=== PATIENT | female | born 1955 | race Caucasian/White ===

== ENCOUNTER 2020-01-17 06:57 | Day surgery (SDC) | payer OTHER ==
--- NOTE | 2020-01-11 14:58 | HP ---
DATE OF SURGERY: 01/17/2020 HISTORY OF PRESENT ILLNESS: The patient is a 64 year-old female who presented to the office with need for follow up colonoscopy. The last colonoscopy was in 2011 after colon resection. Exam was negative. The patient complains of recent pain in lower abdomen, bilateral crampy pain. She denies GI bleeding. She does complain of occasional constipation and diarrhea. PAST MEDICAL HISTORY: Psoriasis. Hypertension. Restless leg. Diverticulosis. PAST SURGICAL HISTORY: She had colon resection for diverticulosis. She had umbilical hernia repair and tubal ligation. ALLERGIES: NEGATIVE. SOCIAL HISTORY: Negative. REVIEW OF SYSTEMS: CONSTITUTIONAL: Denies fever or chills. CHEST: Denies shortness of breath or cough. CVS: Denies chest pain. ABDOMEN: Denies rectal bleeding. Reports some lower abdominal pain, diarrhea and constipation. : Denies dysuria or hematuria. EXTREMITIES: Denies swelling. PHYSICAL EXAMINATION: GENERAL: No acute distress. HEENT: No jaundice. Oral mucosa moist. NECK: No JVD. CHEST: Nonlabored. No shortness of breath. ABDOMEN: Soft, nondistended, nontender to palpation. EXTREMITIES: No edema. INTEGUMENTARY: Warm, pink. No rash. NEUROLOGIC: Alert, awake, oriented. PSYCHIATRIC: Appropriate mood and affect. ASSESSMENT: The patient is complaining of lower abdominal pain. She had a recent rectosigmoid colon adenocarcinoma in 2010. PLAN: Screening colonoscopy to follow up on history of polyp and colon resection with Dr. Norman Nix. As dictated by Caitlyn Biswas NP.
[2020-01-17] MEDS ORDERED: Lactated Ringers 1,000 ML IV ONE (07:22)
[2020-01-17] MEDS ORDERED: Lactated Ringers 1,000 ML IV SCH (07:30)
[2020-01-17] MEDS ORDERED: DIPRIVAN 200 MG/20 ML IV ONE ×2 (08:56→09:08)
[2020-01-17] MEDS ORDERED: Zofran 4 MG/2 ML VIAL ONE (09:30)
[2020-01-17 10:07] VITALS: BP 153/91; PULSE 66; O2SAT 97
--- NOTE | 2020-01-17 11:38 | OP ---
SURGERY DATE/TIME: 01/17/2020 0858 PREOPERATIVE DIAGNOSIS: Abdominal pain, follow up polyps. POSTOPERATIVE DIAGNOSIS: Abdominal pain, follow up polyps. PROCEDURE: Colonoscopy complete to cecum. SURGEON: Norman Nix M.D. ANESTHESIA: MAC. COMPLICATIONS: None. CONDITION: Stable. INDICATION: The patient had some lower abdominal pain and mid abdominal pain and also has a history of polyps and present for colonoscopic examination. She has not had a recent colonoscopic examination. DESCRIPTION OF PROCEDURE: Taken to endoscopy. Left lateral decubitus position. MAC sedation provided. Excellent anesthesia level present. The anastomosis was low anterior end-to-side. The blind end was normal. The functional end was normal. Anastomosis was normal. All the rectal side was normal. The blind end was cannulated and vacuumed out. The functional end was cannulated and advanced. Fairly redundant colon almost a normal length colon as it had been pretty redundant originally prior to sigmoid resection. Base of cecum a little bit of liquid stool that was suctioned, irrigated and totally cleaned out. At this time the appendiceal orifice was normal. Ileocecal valve normal. Base of the cecum normal. Ascending, hepatic, transverse, splenic, descending. No residual sigmoid. Rectum, anus normal. IMPRESSION: Normal examination today. We will stretch her out to five years.
== END 2020-01-17 10:20 | disposition home or self-care (01) ==
LOC: SDC 06:57
PROVIDERS: ATTEND Surgery
DX: Z12.11 Encounter for screening for malignant neoplasm of colon (principal); R10.30 Lower abdominal pain, unspecified; Z86.010 Personal history of colon polyps; Z90.49 Acquired absence of other specified parts of digestive tract; I10 Essential (primary) hypertension; Z79.899 Other long term (current) drug therapy
CPT/HCPCS: J2405; J2704

== ENCOUNTER 2023-04-14 08:34 | Day surgery (SDC) | payer OTHER ==
--- NOTE | 2023-04-08 17:26 | HP ---
DATE: 04/14/2023 HISTORY OF PRESENT ILLNESS: Patient is a 68 year-old female who presents with complaints of anemia. This appears to be new for her. She did have a colonoscopy about 3 years ago. She is due for examination and work-up for her anemia. PAST MEDICAL HISTORY: Hyperlipidemia, hypertension, asthma, gastroesophageal reflux disease, restless leg, osteoporosis, she has had psoriasis. CURRENT MEDICATIONS: Albuterol, aspirin, atorvastatin, folic acid, lisinopril, loratadine, methotrexate, omeprazole, Otezla, Ropinirole, Rybelsus, triamterene. ALLERGIES: NEGATIVE. PAST SURGERIES: Bilateral tubal ligation, hernia repair, colon resection. SOCIAL HISTORY: Negative. FAMILY HISTORY: Colon cancer, hypertension, heart disease, kidney disease. REVIEW OF SYSTEMS: CONSTITUTIONAL: Denies fever or chills. CHEST: Denies shortness of breath. CVS: Denies chest pain. ABDOMEN: Denies abdominal pain. PHYSICAL EXAMINATION: GENERAL: No acute distress. CHEST: Nonlabored. No shortness of breath. CVS: Regular rate and rhythm. ABDOMEN: Soft. IMPRESSION: 1. ANEMIA. PLAN: EGD and colonoscopy with Dr. Mark. Nix. This report was dictated for Dr. Nix by Caitlyn Biswas NP.
[~2023-04-14 08:34] MED LIST: Lactated Ringers 1,000 ML IV SCH
[2023-04-14 09:02] VITALS: RESP 18; O2SAT 97
[2023-04-14] MEDS ORDERED: Versed 2 MG/2 ML Injection ONE (10:40)
[2023-04-14] MEDS ORDERED: Xylocaine-Mpf 2% 5 Ml Vial ONE (10:40)
[2023-04-14] MEDS ORDERED: DIPRIVAN 200 MG/20 ML IV ONE (10:40)
[2023-04-14] MEDS ORDERED: GlucaGen 1 MG ONE (10:56)
--- NOTE | 2023-04-14 11:39 | OP ---
SURGERY DATE/TIME: 04/14/2023 1041 PREOPERATIVE DIAGNOSIS: Follow up for colon cancer, anemia. She has had some intermittent rectal bleeding. POSTOPERATIVE DIAGNOSES: 1) Distal sigmoid 6 mm polyp. 2) A 1 inch hiatal hernia. 3) Grade 2 gastroesophageal reflux disease. PROCEDURES: 1) EGD. Grade 2 gastroesophageal reflux disease, 1 inch hiatal hernia. 2) Colonoscopy complete to cecum. 3) Hot polypectomy 6 mm distal sigmoid polyp. Anastomosis was normal. SURGEON: Norman Nix M.D. ANESTHESIA: General. COMPLICATIONS: None. CONDITION: Stable. INDICATION: The patient had previous colon cancer. She presents for three year follow up. She has had some bright red blood per rectum. DESCRIPTION OF PROCEDURE: She is taken to endoscopy. Left lateral decubitus position. Anal digital examination satisfactory. Scope satisfactory. Rectum satisfactory. Anastomosis normal. Scope advanced to the cecum. Base of the cecum, ileocecal valve, appendiceal orifice normal. Circumferential withdrawal ascending, hepatic, transverse, splenic, descending, sigmoid. Distal sigmoid 6 mm polyp taken with hot biopsy forceps to extinction. Rectum, anus satisfactory. Three year follow up. Prep score was excellent. Withdrawal time about 6 minutes. Upper examination scope introduced. Pharyngoesophageal junction normal. Esophagus normal down to gastroesophageal junction. A 1 inch hiatal hernia, grade 2 gastroesophageal reflux disease. Fundus, body and antrum normal. Pylorus normal. Duodenal bulb normal. Second portion normal. Scope withdrawn and looped upon itself 1 inch hiatal hernia. Scope withdrawn. The patient tolerated the procedure satisfactorily. Follow up in three years.
[2023-04-14 11:51] VITALS: TEMP 97
[2023-04-14 12:10] VITALS: BP 163/84; PULSE 77
== END 2023-04-14 12:12 | disposition home or self-care (01) ==
LOC: SDC 08:34
PROVIDERS: ATTEND Surgery
DX: Z08 Encounter for follow-up examination after completed treatment for malignant neoplasm (principal); Z85.038 Personal history of other malignant neoplasm of large intestine; D64.9 Anemia, unspecified; K62.5 Hemorrhage of anus and rectum; K63.5 Polyp of colon; K44.9 Diaphragmatic hernia without obstruction or gangrene; K21.9 Gastro-esophageal reflux disease without esophagitis
CPT/HCPCS: J1610; J2250; J2704

== ENCOUNTER 2024-07-20 23:55 | Emergency (ER) | payer OTHER ==
[2024-07-21 00:18] VITALS: TEMP 97.8
--- NOTE | 2024-07-21 00:21 | ERPHSYRPT ---
- History of Present Illness Time Seen by Provider: 07/21/24 00:20 Source: patient Exam Limitations: no limitations Patient Subjective Stated Complaint: pt states she has been sick with cough for approx 1 week. was nasueated tonight and was getting a zofran and fell out of bed. denies injury from fall. frequent hacking cough noted. Triage Nursing Assessment: pt alert and oriented, answers quesitons approp. pt ambulates to bed with standby assist. skin warm and dry. respirations nonlabored. frequent hacking cough ntoed. lung sounds diminished Physician History: The patient is a female who presents with worsening cough and shortness of breath. She has been experiencing a worsening cough for about a week, with symptoms intensifying over the last few days. The cough is productive, yielding yellow sputum. She has not checked her temperature but felt febrile a couple of days ago. No chest pain is reported. She experiences shortness of breath and chest tightness, which have been present alongside the cough, contributing to her discomfort. She mentions taking a nighttime sleeping pill, which may affect her ability to provide a consistent history. She denies taking any breathing treatments. She is unsure about any allergies to antibiotics. Timing/Duration: day(s) (3) Cough Quality/Degree: moderate, productive cough Possible Cause: no prior episodes Modifying Factors: Improves With: nothing. Worsens With: activity, coughing, exertion Associated Symptoms: chills, cough, nasal congestion, nasal drainage, shortness of breath, No fever, No chest pain/soreness, No dizziness, No earache, No wheezing Allergies/Adverse Reactions: No Known Drug Allergies Allergy (Verified 03/17/23 08:59) Home Medications: Methotrexate Sodium [Methotrexate] 15 mg PO WEEKLY 03/08/12 [History] lisinopriL [Lisinopril] 20 mg PO BID 02/07/16 [History] Aspirin 81 mg PO DAILY 01/09/20 [History] Ropinirole HCl 0.5 mg [Requip 0.5 MG] 0.5 mg PO HS 01/09/20 [History] Albuterol Sulfate [Proair Digihaler] 2 puff IH Q6HPRN PRN 03/17/23 [History] Apremilast [Otezla] 1 tab PO UD 03/17/23 [History] Atorvastatin Calcium [Lipitor 20MG Tablet] 20 mg PO DAILY 03/17/23 [History] Folic Acid 1 mg [Folate 1 mg] 1 tab PO DAILY 03/17/23 [History] Guaifenesin [Mucinex] 1 tab PO UD PRN 03/17/23 [History] Krill/Om-3/Dha/Epa/Phospho/Ast [Krill Oil 1,000 mg Softgel] 1 cap PO UD 03/17/23 [History] Loratadine 10 mg [Claritin 10 mg] 10 mg PO DAILY 03/17/23 [History] Omeprazole 40 mg PO DAILY 03/17/23 [History] Semaglutide [Rybelsus] 1 tab PO UD 03/17/23 [History] Triamterene/Hydrochlorothiazid [Triamterene-Hctz 37.5-25 mg Tb] 1 tab PO UD 0 03/17/23 [History] Ubidecarenone/Vit E Acet [Co Q-10 100 mg Softgel] 1 tab PO DAILY 03/17/23 [History] Hx Tetanus, Diphtheria Vaccination/Date Given: Yes Hx Influenza Vaccination/Date Given: Yes Hx Pneumococcal Vaccination/Date Given: Yes Immunizations Up to Date: Yes Travel Risk - International Travel Have you traveled outside of the country in past 3 weeks: No - Emerging Infectious Disease Are you exhibiting symptoms associated with any current EIDs: Yes Symptoms: Cough: New Onset, Headaches/Body Aches/ - Review of Systems All Other Systems: Reviewed and Negative - Past Medical History Pertinent Past Medical History: Yes Neurological History: TIA ENT History: No Pertinent History Cardiac History: Hypertension Respiratory History: Other Endocrine Medical History: No Pertinent History Musculoskeletal History: Osteoarthritis, Other GI Medical History: Colorectal Cancer History: No Pertinent History Psycho-Social History: No Pertinent History Female Reproductive Disorders: No Pertinent History Other Medical History: skin cancer to chest. psoriatic arthritis. Pulmonary HTN. Hepatitis remission - Past Surgical History Past Surgical History: Yes Neuro Surgical History: No Pertinent History Cardiac: No Pertinent History Respiratory: No Pertinent History Gastrointestinal: Colon Resection, Hernia Repair Genitourinary: No Pertinent History Musculoskeletal: No Pertinent History Female Surgical History: Tubal Ligation Other Surgical History: skin cancer removed from chest - Social History Smoking Status: Never smoker Exposure to second hand smoke: No Drug Use: none Patient Lives Alone: No - Social Determinants of Health Will the patient participate in the screening: Declined to provide - Nursing Vital Signs Nursing Vital Signs: Initial Vital Signs Blood Pressure 155/81 07/21/24 00:01 Pain Scale Pain Intensity 3 - Physical Exam General Appearance: no apparent distress Ears, Nose, Throat Exam: normal ENT inspection Neck Exam: normal inspection, supple, full range of motion Respiratory Exam: airway intact, rhonchi, No respiratory distress Cardiovascular Exam: regular rate/rhythm, normal heart sounds, capillary refill <2 sec, No edema Extremity Exam: normal inspection, No pedal edema, No tenderness Neurologic Exam: alert, oriented x 3, cooperative Skin Exam: normal color, warm, dry, No rash SpO2 Interpretation: borderline oxygenation SpO2: 91 O2 Delivery: Room Air - Course Nursing assessment & vital signs reviewed: Yes - Radiology Exams Chest X-ray Interpretation: Interpreted by me, Pneumonia Ordered Tests: Active Orders 24 hr Category Date Time Status CHEST 1 VIEW (PORTABLE) Stat Exams 07/21/24 00:21 Taken CBC W DIFF Stat Lab 07/21/24 00:35 Completed CMP Stat Lab 07/21/24 00:35 Completed PROCALCITONIN Stat Lab 07/21/24 00:35 Completed Respiratory Therapy Assessment DAILY RT 07/21/24 00:44 Completed Medication Summary Discontinued Medications Generic Name Dose Route Start Last Admin Trade Name Freq PRN Reason Stop Dose Admin Albuterol/Ipratropium 3 ml 07/21/24 00:20 07/21/24 00:41 Ipratropium/Albuterol Sulfate 3 Ml Ampul.Neb IH 07/21/24 00:21 3 ml STAT ONE Administration Albuterol/Ipratropium Confirm 07/21/24 00:36 Ipratropium/Albuterol Sulfate 3 Ml Ampul.Neb Administered 07/21/24 00:37 Dose 3 ml IH .STK-MED ONE Methylprednisolone Sodium 0 mg 07/21/24 00:20 07/21/24 01:12 Succinate 125 mg/ Sterile IV 07/21/24 00:21 125 mg Water 2 ml STAT ONE Administration Guaifenesin/Dextromethorphan 10 ml 07/21/24 00:20 07/21/24 01:29 Guaifenesin/D-Methorphan Hb 118 Ml Syrup PO 07/21/24 00:21 10 ml STAT ONE Administration Sodium Chloride 1,000 mls @ 999 mls/hr 07/21/24 00:20 07/21/24 03:07 Sodium Chloride 0.9% 1000 Ml IV 07/21/24 01:20 Infused .Q1H1M STA Infusion Ceftriaxone Sodium 2 gm in 100 mls @ 200 mls/hr 07/21/24 00:20 07/21/24 03:05 Rocephin 2 Gm/100 Ml Nacl IV 07/21/24 00:49 Infused STAT ONE Infusion Azithromycin 500 mg in 250 mls @ 250 mls/hr 07/21/24 00:20 07/21/24 03:08 Zithromax 500 Mg/ 250 Ml Nacl Premix IV 07/21/24 01:19 Infused STAT STA Infusion Sodium Chloride Confirm 07/21/24 01:05 Sodium Chloride 0.9% 1000 Ml Administered 07/21/24 01:06 Dose 1,000 mls @ ud .ROUTE .STK-MED ONE Ceftriaxone Sodium Confirm 07/21/24 01:06 Rocephin 2 Gm/100 Ml Nacl Administered 07/21/24 01:07 Dose 2 gm in 100 mls @ ud IV .STK-MED ONE Azithromycin Confirm 07/21/24 01:46 Zithromax 500 Mg/ 250 Ml Nacl Premix Administered 07/21/24 01:47 Dose 500 mg in 250 mls @ ud IV .STK-MED ONE Methylprednisolone Sodium Succinate Confirm 07/21/24 01:05 Methylprednis Sod Succ 125 Mg/2 Ml Vial Administered 07/21/24 01:06 Dose 125 mg .ROUTE .STK-MED ONE Ondansetron HCl 8 mg 07/21/24 02:22 07/21/24 02:51 Zofran 4 Mg/Udtablet Orally Disintegrating PO 07/21/24 02:23 8 mg STAT ONE Administration Ondansetron HCl Confirm 07/21/24 02:26 Zofran 4 Mg/Udtablet Orally Disintegrating Administered 07/21/24 02:27 Dose 8 mg .ROUTE .STK-MED ONE Ondansetron HCl Confirm 07/21/24 02:36 Zofran 4 Mg/Udtablet Orally Disintegrating Administered 07/21/24 02:37 Dose 8 mg .ROUTE .STK-MED ONE Sterile Water Confirm 07/21/24 01:05 Water For Injection,Sterile 10 Ml Vial Administered 07/21/24 01:06 Dose 10 ml IJ .STK-MED ONE Lab/Rad Data: Laboratory Result Diagrams 07/21/24 00:35 07/21/24 00:35 Laboratory Results 07/21/24 07/21/24 07/21/24 Range/Units 00:35 00:35 00:35 WBC (3.98-10.04) x10^3/uL RBC (3.93-5.22) x10^6/uL Hgb (11.2-15.7) g/dL Hct (34.1-44.9) % MCV (79.4-94.8) fL MCH (25.6-32.2) pg MCHC (32.2-35.5) g/dL RDW (11.7-14.4) % Plt Count (182-369) x10^3/uL MPV (9.4-12.3) fL Gran % (34.0-71.1) % Immature Gran % (Auto) (0.001-0.429) % Nucleat RBC Rel Count (0.00-0.2) % Eos # (Auto) (0.04-0.36) x10^3/uL Immature Gran # (Auto) (0.001-0.031) x10^3u/L Absolute Lymphs (auto) (1.18-3.74) x10^3/uL Absolute Monos (auto) (0.24-0.86) x10^3/uL Absolute Nucleated RBC (0.00-0.012) x10^3u/L Lymphocytes % (19.3-51.7) % Monocytes % (4.7-12.5) % Eosinophils % (0.7-5.8) % Basophils % (0.1-1.2) % Absolute Granulocytes (1.56-6.13) x10^3/uL Basophils # (0.01-0.08) x10^3/uL Sodium 135 (135-145) mmol/L Potassium 3.5 (3.5-5.1) mmol/L Chloride 102 (98-107) mmol/L Carbon Dioxide 25 (22-30) mmol/L Anion Gap 11.9 (5-15) MEQ/L BUN 14 (7-17) mg/dL Creatinine 0.81 (0.52-1.04) mg/dL Estimated GFR 79.0 ML/MIN Glucose 129 H (74-106) mg/dL Calcium 8.8 (8.4-10.2) mg/dL Total Bilirubin 0.50 (0.2-1.3) mg/dL AST 35 (14-36) U/L ALT 34 (0-35) U/L Alkaline Phosphatase 71 (38-126) U/L Serum Total Protein 7.3 (6.3-8.2) g/dL Albumin 4.3 (3.5-5.0) g/dL Procalcitonin 0.062 (0.030-0.080) ng/mL Influenza Type A Ag NEGATIVE (NEGATIVE) Influenza Type B Ag NEGATIVE (NEGATIVE) RSV (PCR) NEGATIVE (NEGATIVE) SARS-CoV-2 (PCR) NEGATIVE (NEGATIVE) 07/21/24 Range/Units 00:35 WBC 6.4 (3.98-10.04) x10^3/uL RBC 3.80 L (3.93-5.22) x10^6/uL Hgb 11.9 (11.2-15.7) g/dL Hct 36.1 (34.1-44.9) % MCV 95.0 H (79.4-94.8) fL MCH 31.3 (25.6-32.2) pg MCHC 33.0 (32.2-35.5) g/dL RDW 14.1 (11.7-14.4) % Plt Count 211 (182-369) x10^3/uL MPV 9.8 (9.4-12.3) fL Gran % 70.6 (34.0-71.1) % Immature Gran % (Auto) 0.3 (0.001-0.429) % Nucleat RBC Rel Count 0.0 (0.00-0.2) % Eos # (Auto) 0.17 (0.04-0.36) x10^3/uL Immature Gran # (Auto) 0.02 (0.001-0.031) x10^3u/L Absolute Lymphs (auto) 1.10 L (1.18-3.74) x10^3/uL Absolute Monos (auto) 0.57 (0.24-0.86) x10^3/uL Absolute Nucleated RBC 0.00 (0.00-0.012) x10^3u/L Lymphocytes % 17.2 L (19.3-51.7) % Monocytes % 8.9 (4.7-12.5) % Eosinophils % 2.7 (0.7-5.8) % Basophils % 0.3 (0.1-1.2) % Absolute Granulocytes 4.50 (1.56-6.13) x10^3/uL Basophils # 0.02 (0.01-0.08) x10^3/uL Sodium (135-145) mmol/L Potassium (3.5-5.1) mmol/L Chloride (98-107) mmol/L Carbon Dioxide (22-30) mmol/L Anion Gap (5-15) MEQ/L BUN (7-17) mg/dL Creatinine (0.52-1.04) mg/dL Estimated GFR ML/MIN Glucose (74-106) mg/dL Calcium (8.4-10.2) mg/dL Total Bilirubin (0.2-1.3) mg/dL AST (14-36) U/L ALT (0-35) U/L Alkaline Phosphatase (38-126) U/L Serum Total Protein (6.3-8.2) g/dL Albumin (3.5-5.0) g/dL Procalcitonin (0.030-0.080) ng/mL Influenza Type A Ag (NEGATIVE) Influenza Type B Ag (NEGATIVE) RSV (PCR) (NEGATIVE) SARS-CoV-2 (PCR) (NEGATIVE) - Progress Progress: improved Air Movement: good Progress Note: Productive cough, SOB Presents with a one-week history of productive cough with yellow sputum, worsening shortness of breath, and chest tightness. No fever currently, but felt febrile a few days ago. Physical examination revealed wheezing, particularly on the right side. Clinical presentation suggests pneumonia. Discussed need for chest x-ray and WBC count to confirm diagnosis. Informed about antibiotic therapy, potential side effects, and importance of completing the course. No known antibiotic allergies; previous issue with steroids, so will avoid unless necessary. - Order chest x-ray - Check WBC count - Initiate antibiotic therapy with Rocephin and Azithromycin. - SoluMedrol 125mg IV given - Robatussin given for cough CXR shows b/l patchy infiltrates, WBC and procal wnl, COVID, FLU, RSV negative. Will DC home with 4 days of Azithro 250mg and Prednisone 50mg. Tessalon pearls as needed for cough. Follow up PCP in 3-5 days. Blood Culture(s) Obtained: No Antibiotics given: Yes Counseled pt/family regarding: lab results, diagnosis, need for follow-up, rad results Medical Desision Making - Diagnostic Testing Diagnostic test were ordered, analyzed, and reviewed by me: Yes Radiological Interpretation: Interpreted by me, Reviewed by me, Teleradiologist Report - Risk of complications The pt has a mod risk of morbidity or mortality based on: Need for prescription drug management - Departure Departure Disposition: Home Clinical Impression: Atypical pneumonia, Productive cough, Shortness of breath Condition: Stable Critical Care Time: No Referrals: TRU ROSARIO DO [Primary Care Provider] - Follow up/PCP as directed Instructions: Pneumonia, Adult (DC) Prescriptions: Azithromycin 250 mg PO QDPC 4 Days #4 tablet Benzonatate 200 mg PO TID PRN 7 Days #21 cap PRN Reason: Cough predniSONE [Prednisone] 50 mg PO QDPC 4 Days #4 tab
[2024-07-21] MEDS ORDERED: DUONEB 0.5-3 MG/3 ml Neb IH ONE (00:36)
[2024-07-21 00:41] LABS: BASOPHIL % 0.3 % (0.1-1.2); Basophil (Absolute #) 0.02 x10^3/uL (0.01-0.08); Eosinophil % 2.7 % (0.7-5.8); Eosinophil (Absolute #) 0.17 x10^3/uL (0.04-0.36); Hematocrit 36.1 % (34.1-44.9); Hemoglobin 11.9 g/dL (11.2-15.7); IMMATURE GRAN # 0.02 x10^3u/L (0.001-0.031); IMMATURE GRAN % 0.3 % (0.001-0.429); Lymphocytes % 17.2 % (19.3-51.7); Mean Corpuscular Hemoglobin 31.3 pg (25.6-32.2); Mean Platelet Volume 9.8 fL (9.4-12.3); Monocyte (Absolute #) 0.57 x10^3/uL (0.24-0.86); Monocytes % 8.9 % (4.7-12.5); Neutrophil % 70.6 % (34.0-71.1); Platelet Count 211 x10^3/uL (182-369); Red Cell Distribution Width 14.1 % (11.7-14.4); White Blood Count 6.4 x10^3/uL (3.98-10.04)
[2024-07-21] MEDS: DUONEB 0.5-3 MG/3 ml Neb IH ONE (00:41)
[2024-07-21 01:01] LABS: ALBUMIN 4.3 g/dL (3.5-5.0); ANION GAP 11.9 MEQ/L (5-15); BILIRUBIN,TOTAL 0.5 mg/dL (0.2-1.3); Calcium 8.8 mg/dL (8.4-10.2); Creatinine 1 0.81 mg/dL (0.52-1.04); Potassium 3.5 mmol/L (3.5-5.1); Total Protein 7.3 g/dL (6.3-8.2)
[2024-07-21] MEDS ORDERED: solu-MEDROL ONE (01:05)
[2024-07-21] MEDS ORDERED: Sodium Chloride 0.9% 1000 ML 1,000 ML ONE (01:05)
[2024-07-21] MEDS ORDERED: Sterile H2O 10 ml IJ ONE (01:05)
[2024-07-21] MEDS ORDERED: ROCEPHIN 2 GM/100 ML NACL 2 GM/100 ML IVPB IV ONE (01:06)
[2024-07-21] MEDS: solu-MEDROL 125 MG, Sterile H2O 10 ml 2 ML IV ONE (01:12)
[2024-07-21] MEDS: Sodium Chloride 0.9% 1000 ML 1,000 ML IV STA (01:15)
[2024-07-21] MEDS: ROCEPHIN 2 GM/100 ML NACL 2 GM/100 ML IVPB IV ONE (01:16)
[2024-07-21 01:18] LABS: INFLUENZA A NEGATIVE (NEGATIVE); INFLUENZA B NEGATIVE (NEGATIVE); RESPIRATORY SYNCTIAL VIRUS NEGATIVE (NEGATIVE); SARS-CoV-2 Xpert Express NEGATIVE (NEGATIVE)
[2024-07-21] MEDS: Robitussin-Dm Syrup PO ONE (01:29)
[2024-07-21] MEDS ORDERED: Zithromax 500 MG/ 250 ML NaCl Premix 500 MG/250 ML IVPB IV ONE (01:46)
[2024-07-21] MEDS: Zithromax 500 MG/ 250 ML NaCl Premix 500 MG/250 ML IVPB IV STA (01:47)
[2024-07-21] MEDS ORDERED: ZOFRAN ODT 4 MG ONE ×2 (02:26→02:36)
[2024-07-21] MEDS: ZOFRAN ODT 4 MG PO ONE (02:51)
[2024-07-21 02:54] VITALS: RESP 16
[2024-07-21 03:20] VITALS: BP 164/93; PULSE 96
[2024-07-21 06:04] VITALS: O2SAT 91
--- NOTE | 2024-07-21 08:11 | XRAY ---
Indication: Cough and short of breath 1 week. Comparison: February 18, 2022 Portable chest demonstrates new patchy right midlung groundglass opacities favoring airspace disease given clinical history. CT chest may yield further information if clinically warranted. Remaining heart and lungs unremarkable. Bony thorax intact again with osteopenia and mild degenerative changes.
== END 2024-07-21 03:20 | disposition home or self-care (01) ==
LOC: ED 23:55
DX: J18.9 Pneumonia, unspecified organism (principal); R05.9 Cough, unspecified; R06.02 Shortness of breath; Z79.899 Other long term (current) drug therapy; W06.XXXA Fall from bed, initial encounter; Y92.003 Bedroom of unspecified non-institutional (private) residence as the place of occurrence of the external cause
CPT/HCPCS: 0241U; 36415; 71045; 80053; 84145; 85025; 94640; 96360; 96365; 96374; 99284; 96367; J0456; J0696; J2919; Q0162; A9270-GY

== ENCOUNTER 2025-05-30 07:54 | Day surgery (SDC) | payer OTHER ==
--- NOTE | 2025-05-23 11:53 | HP ---
HISTORY OF PRESENT ILLNESS: The patient is a 70-year-old female who presents with a PET scan showing some abnormal uptake in her distal esophagus. She says her mother did have colon cancer. She denies any other symptoms at this time. PAST MEDICAL HISTORY: Hypertension, hyperlipidemia, GERD, pulmonary hypertension, hepatitis, psoriasis, TIA, colon cancer. ALLERGIES: None. PAST SURGICAL HISTORY: Colon resection, tubal ligation, appendectomy, skin cancer excision. SOCIAL HISTORY: Occasional alcohol. FAMILY HISTORY: Colon cancer, asthma, CHF, heart disease, kidney disease. REVIEW OF SYSTEMS: CONSTITUTIONAL: Denies fever or chills. CHEST: Denies shortness of breath. CARDIOVASCULAR: Denies chest pain. ABDOMEN: Denies abdominal pain. PHYSICAL EXAMINATION: GENERAL: No acute distress. CARDIOVASCULAR: Regular rate and rhythm. RESPIRATORY: Nonlabored. No shortness of breath. ABDOMEN: Soft. ASSESSMENT: Abnormal PET scan with uptake in the distal esophagus and history of colon resection. Unclear if the patient has a personal history of colon cancer, but her mother did have colon cancer. PLAN: EGD, colonoscopy with Dr. Norman Nix. This report was dictated for Dr. Nix by Caitlyn Biswas NP.
[2025-05-30] MEDS: Lactated Ringers 1,000 ML IV SCH (07:58)
[2025-05-30] MEDS ORDERED: propofoL IV ONE ×2 (10:16→10:32)
[2025-05-30] MEDS ORDERED: Xylocaine-Mpf 2% 5 Ml Vial ONE (10:16)
[2025-05-30 11:22] VITALS: RESP 20; TEMP 98.1; O2SAT 97
[2025-05-30 11:29] VITALS: BP 142/77; PULSE 60
--- NOTE | 2025-05-30 16:16 | OP ---
SURGERY DATE/TIME: 05/30/2025 [id number] PREOPERATIVE DIAGNOSES: 1) Patient has an area of high PET activity at the esophagogastric junction requiring evaluation. 2) She has had a colon resection with anastomosis several years ago and she has a mother with colon cancer so she presents also for a colonoscopic examination. POSTOPERATIVE DIAGNOSES: 1) Patient has an area of high PET activity at the esophagogastric junction requiring evaluation. 2) She has had a colon resection with anastomosis several years ago and she has a mother with colon cancer so she presents also for a colonoscopic examination. PROCEDURE: EGD, colonoscopy. SURGEON: Norman Nix MD DESCRIPTION OF PROCEDURE AND FINDINGS: Patient taken to endoscopy, left lateral decubitus position. Scope introduced. Pharyngoesophageal junction normal. Vocal cord normal. Esophagus normal down to EG junction. EG junction grade 2 GERD. I did not see any lesion at all. There was just a slight irritation of the fundus. A promotions representative cold biopsy was taken. Otherwise, the fundus, body, antrum normal. Pylorus normal. Duodenal bulb normal. Second portion normal. Scope looped upon itself. A 1-inch hiatal hernia. Scope withdrawn. Anal digital examination satisfactory tone. The anastomosis was at 9 cm. The blind limb was normal. The functional limb was cannulated. The scope was ran over the cecum. Base of cecum, ileocecal valve, appendical area all normal. Ascending, hepatic, transverse, splenic. Splenic flexure 1 cm polyp taken with hot biopsy forceps. The fold right in front of this was slightly cauterized. This looked satisfactory. Scope circumferentially withdrawn. The patient tolerated the procedure satisfactory. Findings discussed with in the waiting room.
== END 2025-05-30 11:36 | disposition home or self-care (01) ==
LOC: SDC 07:54
PROVIDERS: ATTEND Surgery
DX: K63.5 Polyp of colon (principal); R93.89 Abnormal findings on diagnostic imaging of other specified body structures; Z80.0 Family history of malignant neoplasm of digestive organs; K21.9 Gastro-esophageal reflux disease without esophagitis

== ENCOUNTER 2025-06-21 08:20 | Emergency (ER) | payer OTHER ==
[2025-06-21 08:34] VITALS: TEMP 97
--- NOTE | 2025-06-21 09:01 | ERPHSYRPT ---
- History of Present Illness Time Seen by Provider: 06/21/25 08:25 Source: patient Patient Subjective Stated Complaint: patient had a fall walking up to nurses station, patient states she tripped over her shoe and landed on her chest, patient has complaints of chest pain from hitting chest on ground, patient also complains of bilateral knee pain, right wrist pain, and left elbow pain Triage Nursing Assessment: patient alert and oriented x 4, skin pwd, patient has complaints of chest discomfort, right wrist pain, bilateral knee pain, and left elbow pain from fall, patient has some bruising noted to left elbow, patient denies hitting head, no loss of consciousness, patient able to be helped up into w/c after fall without complication Physician History: Chief complaint: Fall from slip at work HPI: History from patient 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 She was walking in front of the nurses station and simply slipped. She fell forward did drop her coffee mug and it spilled out but there was no spill prior to her fall. She landed on her chest and then she rolled to her back for comfort. She has pain at the mid to lower portion of her chest otherwise she did not hit her head neck or back. She is not having pain in her head neck or back. No pain in her hips. Staff had responded immediately as they were at the nurses station. I was also at the nurses station and did come and speak with the patient at that time. She had been laying on the floor trying to get more comfortable for about 1 to 2 minutes prior to staff assisting her into a wheelchair and then into room 7. She notes that she has had prior rib fractures about 2 years ago from a fall in the parking lot. She notes that when she had that fall it took her about 1 year to recover/recuperate. She does have past medical history reviewed she has had psoriatic arthritis as well as osteoarthritis. Medications and past medical history reviewed in the EMR system She does not smoke Pulse ox 96% on room air normal Allergies/Adverse Reactions: No Known Drug Allergies Allergy (Verified 06/21/25 08:23) Home Medications: Methotrexate Sodium [Methotrexate] 15 mg PO WEEKLY 03/08/12 [History] lisinopriL [Lisinopril] 20 mg PO BID 02/07/16 [History] Aspirin 81 mg PO DAILY 01/09/20 [History] Ropinirole HCl 0.5 mg [Requip 0.5 MG] 0.5 mg PO HS 01/09/20 [History] Atorvastatin Calcium [Lipitor 20MG Tablet] 20 mg PO DAILY 03/17/23 [History] Folic Acid 1 mg [Folate 1 mg] 1 tab PO DAILY 03/17/23 [History] Loratadine 10 mg [Claritin 10 mg] 10 mg PO DAILY 03/17/23 [History] Omeprazole 40 mg PO DAILY 03/17/23 [History] Alendronate Sodium 70 mg PO WEEKLY 05/20/25 [History] Fluticasone Propionate [Flonase Allergy Relief] 2 sprays IN BID 05/20/25 [History] Topiramate 50 mg PO DAILY 05/20/25 [History] Trazodone HCl 150 mg PO DAILY 06/21/25 [History] Hx Tetanus, Diphtheria Vaccination/Date Given: Yes Hx Influenza Vaccination/Date Given: Yes Hx Pneumococcal Vaccination/Date Given: Yes Travel Risk - International Travel Have you traveled outside of the country in past 3 weeks: No - Emerging Infectious Disease Are you exhibiting symptoms associated with any current EIDs: No Symptoms: Cough: New Onset, Headaches/Body Aches/ - Past Medical History Pertinent Past Medical History: Yes Neurological History: TIA ENT History: No Pertinent History Cardiac History: Hypertension Respiratory History: Other Endocrine Medical History: No Pertinent History Musculoskeletal History: Osteoarthritis, Other GI Medical History: Colorectal Cancer History: No Pertinent History Psycho-Social History: No Pertinent History Female Reproductive Disorders: No Pertinent History Other Medical History: skin cancer to chest. psoriatic arthritis. Pulmonary HTN. Hepatitis remission - Past Surgical History Past Surgical History: Yes Neuro Surgical History: No Pertinent History Cardiac: No Pertinent History Respiratory: No Pertinent History Gastrointestinal: Appendectomy, Colon Resection, Hernia Repair Genitourinary: No Pertinent History Musculoskeletal: No Pertinent History Female Surgical History: Tubal Ligation Other Surgical History: skin cancer removed from chest - Social History Smoking Status: Never smoker Drug Use: none - Social Determinants of Health Will the patient participate in the screening: Yes Do you worry about a steady place to live?: No Do you have any problems with any of the following?: No known problems In the past 12 months,have you had to go without utilities?: No Transportation Issues: No Has anyone in your support network made you feel unsafe?: No Have you or anyone in your house had to go w/o enough food: No - Nursing Vital Signs Nursing Vital Signs: Initial Vital Signs Temperature 97 F 06/21/25 08:20 Pulse Rate 69 06/21/25 08:20 Respiratory Rate 16 06/21/25 08:20 Blood Pressure 205/79 06/21/25 08:20 O2 Sat by Pulse Oximetry 96 06/21/25 08:20 Pain Scale Pain Intensity 8 - Physical Exam General Appearance: mild distress SpO2 Interpretation: normal SpO2: 96 O2 Delivery: Room Air Procedures - Additional Procedures Progress: Mildly distressed related to the circumstances of the fall, A&O, nontoxic. Pleasant. Mild pain distress on exam of the lower anterior chest. No physiologic distress. Appears to be an adult with medical problems. Eyes: EOMI, nonicteric, conjunctiva clear. Throat: Moist mucous membranes. Symmetric rise of palate. No pharynx erythema. Tonsils small size and without erythema or exudate. Neck: supple, spontaneous ROM, nontender. trachea midline. No cervical or supraclavicular lymphadopathy. Thyroid nontender and normal size. Lungs: CTA, nl effort, no rales, crackles, rhonchi, wheezes. Normal resonance on percussion. Cough clear. Cardiac: RRR S1, S2, without murmur or rub. Posterior tibial, Pedal, radial, femoral pulses 2/4 & no radio-femoral delay -- bilaterally. No ankle or pretibial edema. Back: No pain on percussion. No muscle spasm. Nontender palpation. Mild kyphosis. No C/T/L bony spine pain Skin: warm, dry, normal turgor. no gross rash. Abdom: Bowel sounds present and active x 4 Quadrants. Normal tympany to percussion. Soft. Non-distended. Nontender, no masses or organomegaly. No rebound, rigidity, or guarding. No pulsatile masses. Nonsurgical. Negative Tracey's signs bilaterally Good muscle tone and moves all extremities. She does have mid to lower anterior chest pain. This is primarily at the mid clavicular line bilaterally inferior to each breast it seems to be focal and not extending to the costal margin. Palpation does increase her pain. No contusions identified. No abrasions identified. She does not have pain with palpation of the mid to upper portion of the sternum or the area of the thorax superior/more cephalad to the breasts, bilaterally. - Course Nursing assessment & vital signs reviewed: Yes EKG Interpreted by Me: Other (EKG with sinus bradycardia rate 54, IN 0.18 two 0.20, QRS 0.08, normal axis and R wave progression. There is some limited baseline wander artifact identified. Lower voltage EKG. No STEMI. Abnormal but nonacute EKG. -- Jone Cline) Ordered Tests: Active Orders 24 hr Category Date Time Status EKG-ER Only STAT Care 06/21/25 08:37 Active Pulse Oximetry (ED) STAT Care 06/21/25 08:37 Active CHEST WITHOUT CONTRAST [CT] Stat Exams 06/21/25 09:03 Completed KNEE (3 VIEWS) Stat Exams 06/21/25 09:31 Completed KNEE (3 VIEWS) Stat Exams 06/21/25 09:37 Completed Medication Summary Discontinued Medications Generic Name Dose Route Start Last Admin Trade Name Carol Ann PRN Reason Stop Dose Admin Acetaminophen 650 mg 06/21/25 09:05 06/21/25 09:30 Acetaminophen 325 Mg Tablet PO 06/21/25 09:06 Not Given STAT ONE Hydrocodone Bitart/Acetaminophen 1 tab 06/21/25 09:39 06/21/25 09:51 Hydrocodone/Apap 5/325 1 Tab Tablet PO 06/21/25 09:40 1 tab STAT ONE Administration Hydrocodone Bitart/Acetaminophen Confirm 06/21/25 09:50 Hydrocodone/Apap 5/325 1 Tab Tablet Administered 06/21/25 09:51 Dose 1 tab .ROUTE .STK-MED ONE Hydrocodone Bitart/Acetaminophen 1 tab 06/21/25 14:25 06/21/25 14:29 Hydrocodone/Apap 5/325 1 Tab Tablet PO 06/21/25 14:26 1 tab STAT ONE Administration Hydrocodone Bitart/Acetaminophen Confirm 06/21/25 14:27 Hydrocodone/Apap 5/325 1 Tab Tablet Administered 06/21/25 14:28 Dose 1 tab .ROUTE .STK-MED ONE - Progress Progress Note: 06/21/25 09:01 She has had 3 fall from standing position while she was walking by the ER nurses station. The floor was not wet she notes she simply slipped/tripped. There was no obstacle in her way. She did land forward impacting against her chest she does not report any head neck or back pain or any head neck or back injury. She has pain at her mid to lower chest at the lower level of the breast through the lower rib area. This does remind her of when she had her prior rib fractures. At this time imaging with CT noncontrast is indicated. She does not have any hemodynamic instability at this time she does not have radial femoral delay to suggest aortic tear or dissection. Also will complete an EKG and bilateral knee XRays I have asked if she requires anything for pain she notes she would like to have some Tylenol. 06/21/25 09:40 She had not received the Tylenol yet but noted her pain was worse than expected. She has had Delta without problem, in the past. single dose Delta 5/325 ordered. 06/21/25 14:24 Rechecked her. She had been with pain relief for several hours after the Delta but she is having return of pain at this time. She is relieved that she does not have any acute findings on her plain film x- rays nor on the CT scan. She was aware of the pulmonary nodule as well as a single gallstone and the degenerative changes in the bones in general. Plan will be for discharge home with Delta/hydrocodone. She may use heat or ice based on whether she has more of a muscular or bony type pain Recheck with her clinic next week. NAD, A&O, nontoxic. Pleasant. No pain distress. No physiologic distress. Appears to be improved from prior exam She notes that when she moves or twists that is when she has exacerbating pain since that Delta has started to wear off. Eyes: spontaneous EOMI, nonicteric, conjunctiva clear Throat: Moist mucous membranes. Neck: spontaneous ROM, without pain. Lungs: no distress, nl effort Skin: warm, dry, normal turgor. no gross rash. Good muscle tone and moves all extremities spontaneously. - Departure Clinical Impression: Contusion, chest wall, Fall on same level from slipping as cause of accidental injury, Knee pain, bilateral Condition: Stable Critical Care Time: No Referrals: TRU ROSARIO DO [Primary Care Provider, [facility]] - Follow up/PCP as directed Instructions: Contusion (DC), Preventing falls in adults Additional Instructions: You need to follow up with your primary care provider in _3-4 days for recheck. Please call for an appointment. For comfort or muscle spasm/ache you may try heat :: Rest. Warm moist heat and gentle massage. Avoid overuse / re-injury. For comfort or bone/joint aches you may try cool :: Rest as possible. Avoid re-injury / overuse. Ice 15 minutes 3-4 times daily for 4-5 days. Recline as possible. Return to recheck with your doctor or to ER for questions, concerns, problems, worsening, fever greater than 102 not responding to medication, painting, coughing up blood, personality changes You may use ibuprofen and/or acetaminophen for fever or pain. You may use both together every 6 hours or alternate every 3 hours. ibuprofen 600 mg per dose acetaminophen 650 mg per dose Forms: Work/School Release Form Prescriptions: Hydrocodone/APAP 5/325 [Delta 5/325 mg] 1 each PO TID #10 tablet MDD 4 tablets
[2025-06-21] MEDS: TYLENOL 325 MG PO ONE (09:30)
[2025-06-21] MEDS ORDERED: NORCO 5/325 MG ONE ×2 (09:50→14:27)
[2025-06-21] MEDS: NORCO 5/325 MG PO ONE ×2 (09:51→14:29)
--- NOTE | 2025-06-21 09:56 | XRAY ---
Indication: Pain. Comparison: None 3 view left knee demonstrates osteopenia and tiny suprapatella spurring. No other bony, articular, or soft tissue abnormalities.
--- NOTE | 2025-06-21 09:56 | XRAY ---
Indication: Pain. Comparison: None 3 view right knee demonstrates osteopenia. No other bony, articular, or soft tissue abnormalities.
--- NOTE | 2025-06-21 10:51 | XRAY ---
Indication: Slip/fall. Rib pain. Multiple contiguous axial images obtained through the chest without contrast. Comparison: April 17, 2025 Lungs demonstrates stable 7 x 10 mm peripheral right upper lobe noncalcified nodule. New minimal lingula and left lung base subsegmental atelectasis/scarring. No suspicious pulmonary mass/nodule, infiltrate, or pneumothorax. Heart not enlarged. Aorta again minimally arteriosclerotic without aneurysm. Stable small mediastinal calcified nodes. No pathologic mediastinal lymphadenopathy. Bony thorax intact again demonstrates osteopenia, minimal degenerative changes throughout spine, T2/T3/T9 Schmorl nodes, and old right 4-6 rib fractures. No new/acute findings. Limited upper abdomen demonstrates stable 7 mm right lobe hepatic cyst versus hemangioma and tiny gallstone. Impression: 1. New left lung subsegmental atelectasis/scarring. 2. Stable indeterminate right upper lobe noncalcified nodule. 3. Again chronic findings including arteriosclerotic disease, chronic bony findings, hepatic cyst/hemangioma, gallstone, and old granulomatous disease. 4. No new/acute findings on this noncontrast exam.
[2025-06-21 14:21] VITALS: RESP 18; O2SAT 96
[2025-06-21 14:46] VITALS: BP 160/85; PULSE 78
== END 2025-06-21 14:49 | disposition home or self-care (01) ==
LOC: ED 08:20
DX: S20.214A Contusion of middle front wall of thorax, initial encounter (principal); W01.0XXA Fall on same level from slipping, tripping and stumbling without subsequent striking against object, initial encounter; Y93.01 Activity, walking, marching and hiking; Y92.232 Corridor of hospital as the place of occurrence of the external cause; Y99.0 Civilian activity done for income or pay; M25.561 Pain in right knee; M25.562 Pain in left knee; I10 Essential (primary) hypertension; Z79.899 Other long term (current) drug therapy